=== PATIENT | male | born 1935 | race Caucasian/White ===

== ENCOUNTER 2018-08-27 15:18 | Observation (INO) | payer OTHER, MEDICARE ==
[~2018-08-27] VITALS: Ht 190.5 cm; Wt 81.8 kg
--- NOTE | ~2018-08-27 | HEMODYNAMI ---
PATIENT:MATI MARCELO MEDICAL RECORD: [id number] : 37 [id number] ADMISSION DATE: 08/27/18 Generatedon:08/28/20188:01 Patient name: MATI MARCELO Patient #: [id number] SSN: : 1935 Date of study: 08/28/2018 Page: Of Hemodynamic Procedure Report Patient Data Patient Demographics Procedure consent was obtained First Name: MATI Gender: Male Last Name: DAVIAN : 1935 [facility] Initial: SANDRA Age: 82 year(s) Patient #: [id number] Race: Unknown Additional ID: [id number] Contact details [address]: [address] [place] [address] State: [place] City: [place] Zip code: [address] Past Medical History Allergies: No known allergies Admission Admission Data Admission Date: 08/27/2018 Admission Time: 16:49 Admit Source: Emergency department Room #: D.2121 Weight (lbs.): 178.58 Weight (kg.): 81 Procedure Procedure Types Cath Procedure Diagnostic Procedure LHC LHC w/Coronaries FFR/IVUS FFR Initial Sedation Charges Moderate Sedation up to 15 minutes PCI Procedure Coronary Stent Coronary Stent Initial Procedure Description Procedure Date Procedure Date: 08/28/2018 Procedure Start Time: 7:41 Procedure End Time: 8:00 Procedure Staff Name Function Ez Delatorre MD Performing Physician Helder Hanson RT Monitor Crista Hernandez RT Scrub Derrick Cui RN Nurse Procedure Data Cath Procedure Fluoroscopy Diagnostic fluoroscopy Total fluoroscopy Time: 4.8 time: 4.8 min min Diagnostic fluoroscopy Total fluoroscopy dose: 991 dose: 991 mGy mGy Contrast Material Contrast Material Type Amount (ml) Isovue 370 90 Entry Location Entry Primary Successful Side Size Upsize Upsize Entry Closure Mcclure ccessful Closure Location (Fr) 1 (Fr) 2 (Fr) Remarks Device Remarks Radial Right 6 Fr Mechanical artery Short Compression Estimated blood loss: 10 ml Diagnostic catheters Device Type Used For End Catheter Placement DIAGNOSTIC [place] 110cm 5 Procedure Fr catheter ([id number]) Procedure Complications No complications Procedure Medications Medication Administration Route Dosage Oxygen etCO2 Nasal cannula 2 l/min Lidocaine 2% added to field 20 Heparin Flush Bag added to field 2 bags (1000units/500ml NS) 0.9% NaCl I.V. 100 ml/hr Radial Cocktail I.A. 1 syringe (Verapamil 2mg/Nitro 400mcg/Heparin 1500units) Lopressor I.V. 5 mg Lopressor I.V. 5 mg Versed I.V. 1 mg Fentanyl I.V. 50 mcg Fentanyl I.V. 50 mcg Heparin Bolus I.V. 4000 units Plavix P.O. 75 mg Hemodynamics Rest Heart Rate: 110 (bpm) Pressure Samples Time Site Value (mmHg) Purpose Heart Use Rate(bpm) 7:42 LV 123/-4,3 Snapshot 101 Snapshots Pre Cath Intra NCS Post Cath Vital Signs Time Heart Resp SPO2 etCO2 NIBP (mmHg) Rhythm Pain Sedation Rate (ipm) (%) (mmHg) Status Level (bpm) 7:23:47 105 21 96 17.8 149/99(122) A-Fib 0 (11) 10(A) , No pain 7:28:01 112 20 97 15.6 147/95(124) A-Fib 0 (11) 10(A) , No pain 7:33:11 125 26 94 14.8 137/95(135) A-Fib 0 (11) 10(A) , No pain 7:38:20 148 16 95 0 129/89(101) A-Fib 0 (11) 10(A) , No pain 7:42:18 114 12 95 15.6 110/88(103) A-Fib 0 (11) 10(A) , No pain 7:46:25 120 12 95 18.5 84/67(78) A-Fib 0 (11) 9(A) , No pain 7:50:21 130 12 95 0 90/69(87) A-Fib 0 (11) 9(A) , No pain 7:54:20 119 14 94 0 83/64(76) A-Fib 0 (11) 9(A) , No pain 7:58:57 102 13 95 17.1 109/88(99) A-Fib 0 (11) 10(A) , No pain Medications Time Medication Route Dose Verified Delivered Reason Note s Effectiveness by by 7:23:01 Oxygen etCO2 2 l/min Ez Meza used for Nasal Juan Ramon Cui RN procedure cannula 7:23:08 Lidocaine 2% added 20ml Ez Hui for local to vial Juan Ramon Delatorre MD anesthetic field 7:23:16 Heparin Flush added 2 bags Ez Hui used for Bag to Juan Ramon Delatorre MD procedure (1000units/500ml field NS) 7:23:25 0.9% NaCl I.V. 100 Ezjelly Meza Per physician ml/hr Juan Ramon Cui RN 7:39:46 Lopressor I.V. 5 mg Ez Meza Per physician Juan Ramon Cui RN 7:41:01 Fentanyl I.V. 50 mcg Ez Meza for sedation Juan Ramon Cui RN 7:41:55 Versed I.V. 1 mg Ez Meza for sedation Juan Ramon Cui RN 7:42:36 Radial Cocktail I.A. 1 Ez Hui for (Verapamil syringe Juan Ramon Delatorre MD vasodilation 2mg/Nitro 400mcg/Heparin 1500units) 7:43:38 Lopressor I.V. 5 mg Ez Meza Per physician Juan Ramon Cui RN 7:50:14 Fentanyl I.V. 50 mcg Ez Meza for sedation Juan Ramon Cui RN 7:52:58 Heparin Bolus I.V. 4000 Ez Meza for veri fied units Juan Ramon Cui RN anticoagulation with dr delatorre 7:56:40 Plavix P.O. 75 mg Ez Meza for Juan Ramon Cui RN antiplatelet therapy Procedure Log Time Note 6:59:40 Informed consent obtained and on chart 6:59:49 Admit Source: Emergency department 7:00:20 Diagnostic Cath status Urgent 7:00:21 Time tracking: Regular hours (M-F 7:00 - 5:00) 7:00:32 Plan of Care:Hemodynamics will remain stable., Cardiac rhythm will remain stable., Comfort level will be maintained., Respiratory function will remain adequate., Patient/ family verbilizes understanding of procedure., Procedure tolerated without complication., Recovers from procedure without complications.. 7:00:48 H&P Date Dictated: 08/27/2018 Within 30 days and on chart.. 7:01:32 Lab Result : BUN 14 mg/dl 7:01:32 Lab Result : Hematocrit 49.5 % 7:01:32 Lab Result : Hemoglobin 17.4 g/dl 7:01:32 Lab Result : Creatinine 0.9 mg/dl 7:01:40 Patient allergic to No known allergies 7:02:47 Patient Weight : 178.58 lbs 7:03:41 Helder Hanson RT(R) sent for patient. Start room use. 7:10:47 Patient received from Med II to CCL 1 Alert and oriented. Tansferred to table in Supine position. 7:10:48 Warm blankets applied, and shannon hugger turned on for patient comfort. 7:10:48 Correct patient and procedure confirmed by team. 7:10:49 ECG and BP/O2 sat monitors applied to patient. 7:17:05 Pre-procedure instructions explained to patient. 7:17:12 Pre-op teaching completed and patient verbalized understanding. 7:17:16 Family unavailable. 7:17:19 Is the patient allergic to Iodine/contrast media? No. 7:17:24 Is patient on blood thinner?Yes 7:17:35 ACC The patient was administered the following blood thiners within the last 24 hours: ACCPlavix 7:17:45 Patient diabetic? No. 7:17:51 ----Pre-sedation anethsthesia assessment.---- 7:18:01 Previous problem with sedation/anesthesia? No ? 7:18:03 Snore? Yes 7:18:05 Sleep apnea? No 7:18:07 Deviated septum? No 7:18:08 Opens mouth fully? No 7:18:10 Sticks out tongue? No 7:18:15 Airway obstruction? No ? 7:18:26 Dentures? No ? 7:18:32 Pre procedure: right posterior tibial pulse 1+ Palpable, but thready & weak; easily obliterated 7:18:46 Patient pain scale 0/10 ?. 7:19:01 IV patent on arrival in right forearm with 0.9% NaCl at KVO. 7:19:16 Lab results completed and on chart. 7:19:24 Alarms reviewed by R. N. 7:19:25 Sharps counted by scrub and verified by R.N. 7:21:38 Use device set Radial Dx or PCI 7:22:37 ACIST Syringe (44721) opened to sterile field. 7:22:40 Medline Cath Pack ([id number]) opened to sterile field. 7:22:41 Bag Decanter (2001S) opened to sterile field. 7:22:44 DIAGNOSTIC WIRE .035 260cm J wire (589615) opened to sterile field. 7:22:45 ACIST Hand Control (66970) opened to sterile field. 7:22:50 Vital chart was started 7:23:00 ACIST Manifold (62641) opened to sterile field. 7:23:00 Tegaderm 4 x 4 (1626W) opened to sterile field. 7:23:01 Oxygen 2 l/min etCO2 Nasal cannula was administered by Derrick Cui RN; used for procedure; 7:23:02 MBrace Wrist Support ([id number]) opened to sterile field. 7:23:05 SHEATH 6FR Slender (05-3653) opened to sterile field. 7:23:06 TR BAND Standard ([id number]) opened to sterile field. 7:23:08 Lidocaine 2% 20ml vial added to field was administered by Ez Delatorre MD; for local anesthetic; 7:23:16 Heparin Flush Bag (1000units/500ml NS) 2 bags added to field was administered by Ez Delatorre MD; used for procedure; 7:23:25 0.9% NaCl 100 ml/hr I.V. was administered by Derrick Cui RN; Per physician; 7:23:49 Baseline sample Acquired. 7:24:04 Rhythm: atrial fibrillation 7:27:54 Full Disclosure recording started 7:29:00 Physician paged 7:30:01 Zero performed for pressure channel P1 7:38:27 Physician arrived 7:38:28 --------ALL STOP TIME OUT------ 7:38:28 Final Timeout: patient, procedure, and site verified with staff and physician. All members of the team are in agreement. 7:38:32 Right Radial & Right Groin site verified by team. 7:38:35 Maximum allowable Isovue 300 dose 300ml. Physician notified. (300ml for normal creatinines. For patients with creatinine of 1.7 or higher multiply weight(kg) x 5 divided by creatinine.) 7:38:39 Fire Safety Assessment: A--An alcohol-based skin anteseptic being used preoperatively., C--Open oxygen or nitrous oxide is being used., D--An ESU, laser, or fiber-optic light is being used. 7:38:58 Physical assessment completed. ASA score P 2 - A patient with mild systemic disease as per Ez Delatorre MD. 7:39:07 Sedation plan: IV Moderate Sedation Medication:Versed, Fentanyl 7:39:46 Lopressor 5 mg I.V. was administered by Derrick Cui RN; Per physician; 7:41:01 Fentanyl 50 mcg I.V. was administered by Derrick Cui RN; for sedation; 7:41:22 Procedure started. 7:41:26 Local anesthetic to right radial artery with Lidocaine 2% by Ez Delatorre MD.INITIAL ACCESS ONLY 7:41:55 Versed 1 mg I.V. was administered by Derrick Cui RN; for sedation; 7:41:56 A 6 Fr Short sheath was inserted into the Right Radial artery 7:42:36 Radial Cocktail (Verapamil 2mg/Nitro 400mcg/Heparin 1500units) 1 syringe I.A. was administered by Ez Delatorre MD; for vasodilation; 7:42:36 A DIAGNOSTIC [place] 110cm 5 Fr catheter (697372) was advanced over the wire and used for Procedure. 7:42:40 LV hemodynamics recorded. 7:43:06 EF : 25 % 7:43:08 LV gram done using FULLER 7:43:10 Injector settings: Ml/sec: 5, Volume: 15, 7:43:14 LCA angiography performed. 7:43:38 Lopressor 5 mg I.V. was administered by Derrick Cui RN; Per physician; 7:45:20 RCA angiography performed. 7:45:23 Catheter removed. 7:47:37 [employer].rata Plus pressure wire (67210Z) opened to sterile field. 7:47:37 INFLATOR Merit BasixCompak (NG8694) opened to sterile field. 7:47:43 GUIDE 6FR XBLAD 3.5 catheter ([id number]) opened to sterile field. 7:47:43 GUIDE 6FR XBLAD 4.0 catheter (03457400) opened to sterile field. 7:48:31 6 Fr xblad 3.5 guide catheter was inserted over the wire 7:48:34 Guide Catheter removed. unable to cannulate vessel. 7:48:38 6 Fr xblad 4 guide catheter was inserted over the wire 7:49:39 FFR/IFR wire advanced. 7:50:14 Fentanyl 50 mcg I.V. was administered by Derrick Cui RN; for sedation; 7:52:04 om 1 lesion measured at 0.83 with IFR 7:52:58 Heparin Bolus 4000 units I.V. was administered by Derrick Cui RN; for anticoagulation; verified with dr delatorre 7:54:13 Pre PCI Site: [place] OM1 has 80% stenosis. 7:54:25 Place stent Inflation Number: 1 A INTEGRITY RX 2.5 x 14 stent ([id number]) was prepped and advanced across the 1st Ob Terra . The stent was deployed at 11 LAURO for 0:10 (min:sec) . 7:54:44 Inflation number: 2 The stent balloon was then re-inflated across the 1st Ob Terra to 15 LAURO for 0:10 (min:sec) . 7:55:06 Stent catheter was removed intact over wire. 7:55:07 Balloon removed over the wire. 7:55:07 Wire removed. 7:56:12 Guide catheter removed. 7:56:21 Sheath removed intact; hemostasis achieved with Mechanical Compression to the Right Radial artery. 7:56:23 Procedure ended.(Physican Out) 7:56:40 Plavix 75 mg P.O. was administered by Derrick Cui RN; for antiplatelet therapy; 7:58:19 Fluoroscopy time 04.80 minutes. 7:58:25 Fluoroscopy dose: 991 mGy 7:58:25 Flurop Dose total: 991 7:58:42 Contrast amount:Isovue 370 90ml. 7:58:43 Sharps counted by scrub and verified by R.N. 7:58:45 TR band inflated with 12cc of air. 7:58:46 Insertion/operative site no bleeding no hematoma. 7:58:50 Post right radial artery:stable, soft, clean and dry 7:58:51 Post Procedure Pulses reassessed and unchanged 7:58:55 Post-procedure physical assessment completed. ASA score P 2 - A patient with mild systemic disease as per Ez Delatorre MD. 7:59:01 Post PCI Site: [place] OM1 has 0% stenosis. 7:59:07 Post procedure rhythm: unchanged. 7:59:12 Estimated blood loss: 10 ml 7:59:13 Post procedure instruction explained to patient.Patient verbalizes understanding. 7:59:13 Patient needs reinforcement of post procedure teaching. 7:59:31 Procedure type changed to Cath procedure, Diagnostic procedure, LHC, LHC w/Coronaries, FFR/IVUS, FFR Initial, Sedation Charges, Moderate Sedation up to 15 minutes, PCI procedure, Coronary Stent, Coronary Stent Initial 7:59:52 Procedure and supply charges have been captured, reviewed, submitted and are correct. 7:59:54 Procedure Complication : No complications 7:59:56 Vital chart was stopped 7:59:57 See physician's report for complete and final results. 7:59:58 Report given to PCU. 8:00:06 Patient transfered to PCU with Stretcher. 8:00:07 Procedure ended. 8:00:07 Full Disclosure recording stopped 8:00:11 End room use (Document Last) Intervention Summary Intervention Notes Time ActionType Lesion and Equipment Action# Pressure Duration Attributes Used 7:54:25 Place stent 1st Ob Terra INTEGRITY RX 1 11 00:10 2.5 x 14 stent ([id number]) 7:54:44 Reinflate 1st Ob Terra INTEGRITY RX 2 15 00:10 stent 2.5 x 14 balloon stent ([id number]) Device Usage Item Name Manufacture Quantity Catalog Hospital Part Current Min imal Lot# / Number Charge Number Stock Stock Serial# Code ACIST Acist 1 97184 824024 743507 058443 20 Syringe Medical (03979) Systems Inc Medline Cath Medline 1 [id number] 334245 48705 460065 5 Pack ([id number]) Bag Decanter Microtek 1 016286 69861 412160 5 () Medical Inc. DIAGNOSTIC St [place] 1 008163 002751 750541 397059 30 WIRE .035 260cm J wire (039669) ACIST Hand Acist 1 02107 102459 068576 177212 5 Control Medical (59760) Systems Inc ACIST Acist 1 00402 717179 270445 314651 5 Manifold Medical (62397) Systems Inc Tegaderm 4 x 3M 1 1626W 916942 249231 880783 5 4 (1626W) MBrace Wrist Advanced 1 140-0250-00 814096 72516 070737 5 Support Vascular (533653894) Dynamics SHEATH 6FR Terumo 1 [id number] 081546 397444 957449 5 Slender (80-1060) TR BAND Terumo 1 HFA80-EXC 667614 175933 534414 40 Standard ([id number]) DIAGNOSTIC Terumo 1 40-6433 448919 502101 915717 5 [place] 110cm 5 Fr catheter (748862) [place] 1 49183C 026503 935556421 257717 5 Verrata Plus pressure wire (89538B) INFLATOR Merit 1 CY8931 718807 650368 439271 15 [facility] Medical BasixCompak (NZ7609) GUIDE 6FR Cardinal 1 88891982 236349 131779 638313 10 XBLAD 3.5 Health catheter (59760889) GUIDE 6FR Cardinal 1 36208957 096613 569334 882208 3 XBLAD 4.0 Health catheter (39327490) INTEGRITY RX Medtronic 1 [id number] 457649 123484 991595 5 [id number] 2.5 x 14 stent ([id number]) Signature Audit [place] Stage Time Signature Unsigned Intra-Procedure 08/28/2018 Helder Hanson 8:01:02 AM RT(R) Signatures Monitor : Helder Hanson RT Signature : Date : Time : [facility] [address] [place] [address]
--- NOTE | ~2018-08-27 | DS ---
PATIENT:MATI MARCELO :37 MEDICAL RECORD: [id number] DISCHARGE SUMMARY ADMISSION DATE: 08/27/18 DISCHARGE DATE: 08/28/18 DATE OF DISCHARGE: 08/28/2018. DISCHARGE DIAGNOSES: 1. Unstable angina. 2. PTCA stent left circumflex this admission. 3. Atrial fibrillation, unknown duration. 4. Shortness of breath, dyspnea on exertion. 5. Hypertension. HOSPITAL COURSE: Mr. Marcelo presents with unstable anginal symptomatology, shortness of breath and atrial fibrillation of unknown duration. He has a past history of PTCA stent 15 years ago. He underwent cardiac catheterization revealing significant disease of the circumflex, underwent successful PTCA stent of the circumflex, discharged home with Plavix times 1 month as this was a bare-metal stent. Also, he had the addition of Eliquis and sotalol to his medical regimen. He will follow up with [facility] whichever he choses within 1 month. After 1 month of anticoagulation if he is still in atrial fibrillation, we would perform DC cardioversion at that time. TRANSINT:[id number] Voice Confirmation ID: [id number] DOCUMENT ID: [id number] SHANNAN JARVIS MD CC: [id number] DICTATION DATE: 08/28/18 0801 A&P TECHNICIAN: 08/29/18 0300 DIS IN 08/28/18 [facility] [address] [place] [address]
--- NOTE | ~2018-08-27 | OP ---
PATIENT NAME: MATI MARCELO MEDICAL RECORD: [id number] :37 LOCATION:D.M2 D.2121 ADMISSION DATE:08/27/18 SURGEON: SHANNAN JARVIS MD DATE OF OPERATION: 08/28/2018 DATE OF SERVICE: 08/28/2018 PROCEDURES: 1. PTCA stent left circumflex. 2. IFR. 3. Left heart catheterization. 4. Selective coronary angiography. 5. Left ventriculogram. INDICATION: Shortness of breath, angina, unstable, atrial fibrillation. PROCEDURE IN DETAIL: After informed consent was obtained and after detailed explanation of risks, benefits as well as alternative therapies, the patient elected to proceed with angiogram and angioplasty. The right radial area was prepped and draped in normal sterile fashion. Right radial artery was cannulated via modified Seldinger technique with placement of 6-Trinidadian sheath. All catheters exchanged through this sheath. FINDINGS: Left ventriculogram was performed in standard 30-degree FULLER view, reveals global hypokinesis, ejection fraction of 25-30%. SELECTIVE CORONARY ANGIOGRAPHY: 1. Left main has no significant angiographic disease. 2. Left anterior descending has previously placed stents, these are widely patent with no significant restenosis. No disease elsewise at the LAD or its branches. 3. Left circumflex has previously placed stents, these are patent; however, there is 80% stenosis distal to the previously placed stents and IFR is abnormal at 0.82. 4. The right coronary artery has moderate irregularities, but no flow-limiting stenosis. PTCA STENT OF THE LEFT CIRCUMFLEX: The stent used was a 2.5 x 15 mm Integrity. Result was 0% residual stenosis. OVERALL IMPRESSION: Successful percutaneous transluminal coronary angioplasty stent of the left circumflex going from 80% initial stenosis to 0% residual. TRANSINT:[id number] Voice Confirmation ID: [id number] DOCUMENT ID: [id number] SHANNAN JARVIS MD CC: [id number] DICTATION DATE: 08/28/18 0803 SERVICE DESK ANALYST: 08/28/18 0850 [place] [address]
[2018-08-27] MEDS ORDERED: LISINOPRIL10 MG PO (15:29)
[2018-08-27] MEDS ORDERED: NORVASC10 MG PO (15:29)
[2018-08-27] MEDS ORDERED: HYDROCHLOROTHIA25 MG PO (15:29)
[2018-08-27] MEDS ORDERED: FLOMAX0.4 MG PO (15:30)
[2018-08-27] MEDS ORDERED: RANITIDINE HCL150 M1 PO (15:30)
[2018-08-27] MEDS ORDERED: METOPROLOL TART25 MG PO (15:30)
[2018-08-27] MEDS ORDERED: ASPIRIN325 MG PO (15:31)
[2018-08-27] MEDS ORDERED: LIPITOR10 MG PO (15:31)
[2018-08-27 16:30] VITALS: BP 110/86
[2018-08-27] MEDS ORDERED: ELIQUIS5 MG PO (16:38)
[2018-08-27] MEDS ORDERED: BETAPACE 80 MG80 MG PO (16:38)
[2018-08-27 16:45] LABS: BASOPHILS 0.5 % (0-2); EOSINOPHILS 1.8 % (0-7); HEMATOCRIT 49.5 % (42.0-54.0); HEMOGLOBIN 17.4 g/dL (13.5-17.5); IMMATURE GRANULOCYTES 0.2 % (0-5); LYMPHOCYTES 23.4 % (15-50); MCH 28.1 pg (26.0-34.0); MCHC 35.2 g/dL (31.0-37.0); MONOCYTES 7.8 % (2-11); NEUTROPHILS 66.3 % (40-80); PLATELET COUNT 112 10x3/uL (130-400); RBC 6.19 10x6/uL (4.20-6.10); RDW 16.5 % (11.5-14.5); WBC 6.2 10x3/uL (4.8-10.8)
[2018-08-27 17:25] LABS: ALBUMIN 3.9 g/dL (3.4-5.0); ALKALINE PHOSPHATASE 74 U/L (46-116); ALT (SGPT) 20 U/L (10-68); CALC OSMOLALITY 267 mosm/kg (275-300); CALCIUM 8.7 mg/dL (8.5-10.1); CHLORIDE - SERUM 98 mmol/L (98-107); CKMB 2.6 U/L (0.0-3.6); CREATINE KINASE 142 UL (21-232); CREATININE - SERUM 0.9 mg/dL (0.6-1.3); GLUCOSE 116 mg/dL (74-106); POTASSIUM - SERUM 3.8 mmol/L (3.5-5.1); PROTEIN - SERUM 7.1 g/dL (6.4-8.2); SODIUM 133 mmol/L (136-145); TROPONIN-I < 0.017 ng/mL (0.000-0.060); UREA NITROGEN 14 mg/dL (7-18); eGFR NON AFRICAN AMERICAN 86 mL/min (90-120)
[2018-08-27 17:27] VITALS: BP 115/53
--- NOTE | 2018-08-27 18:11 | NUR ---
RECIEVED TO RM 2121 FROM ER. ADMIT ASSESSMENT PER RN.
[2018-08-27 20:00] VITALS: BP 136/72
[2018-08-27 23:03] VITALS: Ht 190.5 cm; Wt 81.8 kg
[2018-08-28 00:30] VITALS: BP 133/76
--- NOTE | 2018-08-28 03:22 | NUR ---
RESTING WITH EYES CLOSED, RESPERATIONS EVEN, NO S/S DISTRESS NOTED.
[2018-08-28 04:20] VITALS: BP 132/76
--- NOTE | 2018-08-28 07:06 | NUR ---
TO WASH TANK TENDER PER BED
--- NOTE | 2018-08-28 07:59 | HP ---
PATIENT: MATI MARCELO MEDICAL RECORD: [id number] ACCOUNT: [id number] LOCATION:[address] : 37 ADMISSION DATE: 08/27/18 PCP: GUILLERMINA REYNOSO MD HISTORY AND PHYSICAL EXAMINATION ADMITTING DIAGNOSES: 1. Unstable angina. 2. Coronary artery disease. 3. Previous percutaneous transluminal coronary angioplasty stent in 2003. 4. Atrial fibrillation, unknown duration. 5. Shortness of breath, dyspnea on exertion. 6. Hypertension. 7. Hyperlipidemia. 8. Gastroesophageal reflux disease. HISTORY OF PRESENT ILLNESS: This is a gentleman followed at the [facility]. He has past history of coronary artery disease, previous cardiac stenting 3 stent in 2003. He has done well until the past 2 weeks. He has had increasing episodes of chest pain, chest discomfort compatible with angina as well as increasing shortness of breath. He presented to the [facility] today with these complaints and found to be in new onset atrial fibrillation. His EKG is compatible with previous anterior septal myocardial infarction. He has not to his knowledge, had a previous myocardial infarction. There are nonspecific ST-T abnormalities. He continues to have the symptomatology. He has heart rates in the 100-106 range. He is on metoprolol 25 mg b.i.d., amlodipine 10 mg every day, lisinopril 10 mg every day as well as aspirin and Lipitor. PHYSICAL EXAMINATION: GENERAL APPEARANCE: Well-nourished, well-developed, appears stated age. Level of distress, comfortable. PSYCHIATRIC: Mental status, alert, normal affect. Orientation, oriented to time, place and person. EYES: Lids and conjunctiva, noninjected. No discharge, no pallor. ENT: Lips, teeth, gums, normal dentition. Oropharynx, no cyanosis, no pallor. NECK: Carotid arteries, bilateral normal upstroke, no bruits, no thrills. JUGULAR VEINS: No jugular venous pressure or distention. CERVICAL LYMPH NODES: Nontender, nonenlarged. THYROID: Not enlarged. Nontender. No nodules. LUNGS: Respiratory effort, unlabored. CHEST: Normal curvature. No thoracic deformity. No chest wall tenderness. Percussion, resonant. Auscultation, clear. No wheezes, no rales, no rhonchi. CARDIOVASCULAR: Precordial exam, nondisplaced. No heaves or pericardial thrills. Rate and rhythm, regular. Heart sounds, normal S1, normal S2. No S3, no gallop, no rub. Systolic murmur, not heard. Diastolic murmur, not heard. EXTREMITIES: No cyanosis, no edema. Peripheral pulses, full and equal in all extremities, except as noted. No bruits appreciated. ABDOMEN: Soft, nondistended. Normal aorta. No bruit. Nontender. No masses. Liver, nontender, no hepatomegaly. Spleen, nontender, no splenomegaly. MUSCULOSKELETAL: No joint tenderness. No joint swelling. No erythema. NEUROLOGICAL: Normal gait, normal strength, normal tone. SKIN: Warm and dry. OVERALL IMPRESSION: Unstable anginal symptomatology in conjunction with atrial fibrillation of unknown duration. At this time, we will change the metoprolol to sotalol and give him a dose of Cardizem bolus for allowing his ventricular HISTORY AND PHYSICAL [id number] MATI MARCELO response even though it is not fast at this time, most likely this is ischemic based. We will proceed with coronary angiography in the a.m. Further care depends sinus of the angiography and then we will place him on antithrombotic directed therapy as well as sotalol therapy for the atrial fibrillation. TRANSINT:[id number] Voice Confirmation ID: [id number] DOCUMENT ID: [id number] SHANNAN JARVIS MD at 0759 CC: [id number] DICTATION DATE: 08/27/18 1648 CIRCULATING PROCESS INSPECTOR: 08/27/18 192 ADM IN [place] [address] [place] [address]
--- NOTE | 2018-08-28 09:25 | NUR ---
RETURN FROM MEMS ENGINEER PER BED. TR BAND NOTED TO RIGHT WRIST. NO HEMATOMA OR BLEEDING NOTED. VS STABLE.
[2018-08-28] MEDS ORDERED: BETAPACE 120 M120 MG PO (11:02)
[2018-08-28] MEDS ORDERED: PLAVIX75 MG PO (11:02)
[2018-08-28] MEDS ORDERED: ELIQUIS5 MG PO (11:03)
[2018-08-28 11:29] VITALS: BP 129/82
--- NOTE | 2018-08-28 11:30 | NUR ---
2CC OF AIR LET OUT OF TR BAND. NO BLEEDING OR HEMATOMA NOTED.
--- NOTE | 2018-08-28 14:00 | NUR ---
TR BAND REMOVED. NO BLEEDING OR HEMATOMA NOTED. DRESSING PLACED.
--- NOTE | 2018-08-28 14:37 | NUR ---
DC AND RX GIVEN TO PT
--- NOTE | 2018-08-28 15:05 | NUR ---
D/C HOME PER PERSONAL CAR.
--- NOTE | 2018-08-28 15:37 | MORECARE ---
CASE MANAGEMENT DISCHARGE SUMMARY PATIENT: MATI MARCELO UNIT: [id number] ADM DATE: 08/27/18 AGE: 82 : 36 SEX: M ROOM/BED: D.2121 AUTHOR: STEPHANIE DUMONT PHYSICIAN: REFERRING PHYSICIAN: SHANNAN JARVIS MD DATE OF SERVICE: 08/28/18 Discharge Plan Patient Name: [facility]ARCEL[facility] 1935 Planned Disposition: Home Anticipated Discharge Date: 08/28/18 Discharge Date: 08/28/2018 Expected LOS: 1 Initial Reviewer: [email or web address] Initial Review Date: 08/28/2018 Generated: 08/28/18 4:36 pm Patient Name: MATI MARCELO Page [phone] at 1537 All edits/amendments must be made on the electronic document DICTATION DATE: 08/28/18 1536 IRRIGATION PUMP INSTALLER: CHAYR 08/28/18 1536 RPT#: [id number] DC DATE:08/28/18 STATUS: DIS IN [facility] [address] [facility] [place] [address] END OF REPORT
== END 2018-08-28 15:05 | disposition home or self-care (01) ==
LOC: D.ER 15:18 → D.M2 16:49 → OBSVTIME 16:49 → D.M2 08-28 15:05
PROVIDERS: Emergency Medicine; ADMIT Internal Medicine Interventional Cardiology; ATTEND Internal Medicine Interventional Cardiology
DX: I25.110 Atherosclerotic heart disease of native coronary artery with unstable angina pectoris (principal); I48.91 Unspecified atrial fibrillation; I10 Essential (primary) hypertension; E78.5 Hyperlipidemia, unspecified; K21.9 Gastro-esophageal reflux disease without esophagitis

== ENCOUNTER → 2019-11-06 08:03 | Outpatient (CLI) | payer MEDICARE ==
[2018-08-27 23:03] VITALS: BMI 22.5
[~2019-11-06 08:03] MED LIST: ASPIRIN325 MG PO; BETAPACE 120 M120 MG PO; BETAPACE 80 MG80 MG PO; ELIQUIS5 MG PO; FLOMAX0.4 MG PO; HYDROCHLOROTHIA25 MG PO; LIPITOR10 MG PO; LISINOPRIL10 MG PO; METOPROLOL TART25 MG PO; NORVASC10 MG PO; PLAVIX75 MG PO; RANITIDINE HCL150 M1 PO
== END | disposition home or self-care (01) ==
LOC: D.HCCECHO 08:03 → EDBD 08:30 → D.HCCECHO 08:30
PROVIDERS: ATTEND Internal Medicine Cardiovascular Disease
DX: I25.10 Atherosclerotic heart disease of native coronary artery without angina pectoris (principal)